=== PATIENT | female | born 1960 | race Caucasian/White ===

== ENCOUNTER → 2023-08-20 16:37 | Outpatient (REF) | payer OTHER, SELFPAY | LOC: WDC 16:37 | PROVIDERS: ATTENDING PHYSICIAN Obstetrics & Gynecology; FAMILY PHYSICIAN Family Medicine | DX: Z12.31 Encounter for screening mammogram for malignant neoplasm of breast (principal) | CPT/HCPCS: 77063; 77067 ==

== ENCOUNTER → 2023-08-21 12:46 | Outpatient (REF) | payer OTHER, SELFPAY | LOC: RAD 12:46 | PROVIDERS: ATTENDING PHYSICIAN Internal Medicine Cardiovascular Disease; FAMILY PHYSICIAN Family Medicine | DX: I70.0 Atherosclerosis of aorta (principal); T14.8XXA Other injury of unspecified body region, initial encounter | CPT/HCPCS: 71275; Q9967 ==

== ENCOUNTER → 2023-08-28 07:13 | Outpatient (REF) | payer OTHER, SELFPAY | LOC: DHCBS HW 07:13 | PROVIDERS: ATTENDING PHYSICIAN Internal Medicine Cardiovascular Disease; FAMILY PHYSICIAN Family Medicine | DX: I70.0 Atherosclerosis of aorta (principal); T14.8XXA Other injury of unspecified body region, initial encounter | CPT/HCPCS: 93306 ==

== ENCOUNTER 2024-02-09 15:48 | Emergency (ER) | payer OTHER, SELFPAY ==
[2024-02-09 15:58] VITALS: BP 163/94
[2024-02-09 16:21] LABS: % Basophils 0.7 % (0-2); % Eosinophils 1.2 % (0-6); % Immature Granulocytes 0.3 % (0-0.5); % Lymphocytes 23.7 % (20.5-51.1); % Monocytes 10.3 % (1.7-9.3); % Neutrophils 63.8 % (42.2-75.2); Absolute Basophils 0.1 10^3/uL (0-0.2); Absolute Eosinophils 0.1 10^3/uL (0-0.7); Absolute Lymphocytes 2.2 10^3/uL (1.2-3.4); Hematocrit 39.2 % (37.0-47.0); Mean Corp Hgb Conc. 35.7 g/dL (33.0-37.0); Mean Corpuscular Hgb 31.1 pg (27.0-31.0); Mean Corpuscular Volume 87.1 fL (81.0-99.0); Mean Platelet Volume 9.2 fL (7.4-10.4); Nucleated Red Blood Cells % 0 %; Platelet Count 412 10^3/uL (130-400); Red Cell Dist. Width 12.4 % (11.5-14.5); White Blood Cell Count 9.4 10^3/uL (4.8-10.8)
[2024-02-09 16:37] LABS: ALT (SGPT) 16 U/L (0-35); AST (SGOT) 18 U/L (14-36); Albumin 4.8 g/dl (3.5-5.0); Alkaline Phosphatase 62 U/L (38-126); Blood Urea Nitrogen 15 mg/dl (7-17); Calcium 9.7 mg/dl (8.4-10.2); Carbon Dioxide 28 mmol/L (22-30); Chloride 101 mmol/L (98-107); Glucose 93 mg/dl (70-99); Sodium 138 mmol/L (135-145); Total Bilirubin 0.8 mg/dl (0.2-1.3); Total Protein 7.6 g/dl (6.3-8.2); eGFR > 60.00
[2024-02-09 16:56] LABS: Troponin I < 0.012 ng/ml
[2024-02-09 17:34] VITALS: BP 164/76
--- NOTE | 2024-02-09 18:22 | ED.GENMED ---
History of Present Illness
General
Chief Complaint: Chest Pain
Source: patient
Exam Limitations: none
Time Seen by Provider: 02/09/24 18:21
Nursing documentation reviewed up to this point in time: agreed with
History of Present Illness
History of Present Illness:
Patient is a 64-year-old female who presents to the ER with intermittent left upper chest tightness for the past several days. She reports she feels a tightness in her left upper chest off and on for which lasts around seconds at a time. It is not
associated with shortness of breath. She denies any nausea vomiting diaphoresis. Last night while sleeping she also had a pinching type sensation in her left arm and she reports that she had to sleep with her left arm elevated and she had to
lay on her right side for the pain to go away. She does have a nxiety and was also concerned this could be anxiety.
She presently is asymptomatic. She does follow with DR Sharif .
She does not smoke. 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 She is not on blood thinners.
Past History
Past History
ED Past Medical History: GERD and Other (Anxiety)
ED Past Surgical History: Gynecological
Social History
Tobacco: Non-smoker
Alcohol: Occasional
Drug: None
Personal:
Living: with family
Employment: Employed
Family History
Family History: Hypertension
Review of Systems
Review of Systems
Allergies reviewed?: Yes
All Other Systems: ROS reviewed and negative except as documented in HPI and ROS
Constitutional: Reports no symptoms
Respiratory: Reports no symptoms; Denies trouble breathing
Cardiac: Reports chest pain (Currently chest pain-free); Denies palpitations or syncope
ABD/GI: Reports no symptoms; Denies abdominal pain, nausea or vomiting
: Reports no symptoms
Musculoskeletal: Reports other (Pinching sensation to left arm resolved now )
Skin: Reports no symptoms
Neurological: Reports no symptoms
Psychiatric: Reports no symptoms
Phy Exam
General Physical Exam
General Presentation: no apparent distress
General age: appears stated age
General Skin: warm and dry
General Habitus: normal
General Mental: alert
General Hydration: appears well hydrated
Cardiovascular Exam
Cardiovascular Exam: regular rate/rhythm, no murmur and normal peripheral pulses
Pulmonary Exam
Pulmonary Exam: lungs clear and no respiratory distress
Neurological Exam
Neurological Exam: alert and oriented x3
Musculoskeletal Exam
Musculoskeletal Exam: full ROM
Skin Exam
Skin Exam: normal color and warm/dry
Psychiatric Exam
Psychiatric Exam: normal mood/affect
Scores
Heart Score for Chest Pain Patients
STEMI patient?: Not applicable
Course
Orders/Labs/Results
Orders:
Orders
02/09/24 16:04
EKG [Electrocardiogram (*1)] Urgent
Reason for Study: Chest Pain
EKG- Treatment ONCE
02/09/24 16:14
CMP [Comprehensive Metabolic Panel] Urgent
Complete Blood Count/With Diff Urgent
Troponin I Urgent
02/09/24 17:32
CR Chest - 2 Views Urgent
Comment:
Reason For Exam: chest pain
Abnormal Lab Results
02/09/24
16:14
MCH 31.1 H pg
(27.0-31.0)
Plt Count 412 H 10^3/uL
(130-400)
Absolute Monos (auto) 1.0 H 10^3/uL
(0.1-0.6)
Monocytes % 10.3 H %
(1.7-9.3)
02/09/24 16:14
02/09/24 16:14
Vital Signs
Initial and Last Documented VS:
Initial Vital Signs
Temp Pulse Resp BP Pulse Ox
98.9 F 67 18 163/94 99
02/09/24 15:58 02/09/24 15:58 02/09/24 15:58 02/09/24 15:58 02/09/24 15:58
Last Documented Vital Signs
Temp Pulse Resp BP Pulse Ox
98.9 F 64 18 164/76 99
02/09/24 15:58 02/09/24 17:34 02/09/24 17:34 02/09/24 17:34 02/09/24 17:34
MDM/Problems Addressed
MDM/Problems Addressed:
Patient is a 64-year-old female who presented the ER with left upper chest tightness intermittent for the past several days which last seconds at a time not associated with shortness of breath. Last night she noticed some left arm pinching
sensation which was relieved with sleeping on the opposite side and elevating her left arm. Because of the arm pain and intermittent history of chest pain she presented to the ER. She presents awake alert no acute distress asymptomatic now
negative cardiac troponin no acute findings and EKG.
No acute findings on chest x-ray. With symptoms and negative cardiac troponin and patient being asymptomatic here in the ER safe to discharge home with chest pain hotline follow-up.
*Radiology
Radiology exam reviewed: preliminary read by ED provider
*Pulse Oximetry
Patient hypoxic: no
*EKG
Interpreted by ED Provider?: Yes
Interpretation: abnormal
Comparison EKG: no changes
Heart Rate: 63
Rate: normal
Rhythm: sinus
Ischemia: no ischemia
*Critical Care Note
Total Time (30-74mins, 75-104mins- exclusive of procedures): Not Applicable
ED Attending Note
-
Portions of this chart may have been created with voice recognition software.� Occasional wrong word or��sound alike� substitutions may have occurred due to the inherent limitations of voice recognition software.
Discharge Plan
Departure
Patient Disposition: Home (Routine Discharge)
Date of Disposition: 02/09/24
Time of Disposition: 18:30
Patient with high blood pressure during this ER visit?: Yes
Condition: Fair
Covid-19: Not Applicable
Discharge Problem:
Chest pain
Instructions: Chest Pain DCA Follow Up
Prescriptions:
No Action
omeprazole 40 MG capsule,delayed release(DR/EC)
40 mg PO DAILY
qksdaeipr-ilskrx-cvkkpbjd-scop 10 ML elixir
10 ml PO QIDPRN PRN (Reason: spasm) Qty: 10 0RF
alum-mag hydroxide-simeth [Mag-Al Plus] 30 ML suspension
30 ml PO QIDPRN PRN (Reason: indigestion) Qty: 14 0RF
hydrocodone-acetaminophen 1 TABLET tablet
1 tab PO Q4HPRN PRN (Reason: pain) Qty: 14 0RF
pantoprazole [Protonix] 40 mg tablet,delayed release (DR/EC)
40 mg PO DAILY Qty: 30 2RF
sucralfate [Carafate] 100 mg/mL suspension
1 g PO BID Qty: 1000 0RF
Referrals:
Aurelia Sharif MD [Active] -
Activity Restrictions/Additional Instructions:
As discussed you were placed on the cardiac chest pain hotline if you do not hear from their office please give them a call to schedule an appointment as soon as possible for reevaluation. Return if any worsening of symptoms.
Interventions
Interventions:
*Risk Screen - Suicide Last Done: 02/09/24 15:58
*Neglect/Abuse Screening Last Done: 02/09/24 15:58
*ED COVID-19 Vaccine History Last Done: 02/09/24 16:03
Discharge Date and Time
Print Language: BRITISH
== END 2024-02-09 18:38 | disposition home or self-care (01) ==
LOC: EMR 15:48
PROVIDERS: EMERGENCY PHYSICIAN Emergency Medicine; FAMILY PHYSICIAN Family Medicine
DX: R07.89 Other chest pain (principal); K21.9 Gastro-esophageal reflux disease without esophagitis; F41.9 Anxiety disorder, unspecified; Z82.49 Family history of ischemic heart disease and other diseases of the circulatory system
CPT/HCPCS: 99283; 71046; 80053; 84484; 85025; 93005

== ENCOUNTER → 2024-08-26 11:18 | Outpatient (REF) | payer OTHER, SELFPAY | LOC: WDC 11:18 | PROVIDERS: ATTENDING PHYSICIAN Obstetrics & Gynecology Gynecology; FAMILY PHYSICIAN Family Medicine | DX: Z12.31 Encounter for screening mammogram for malignant neoplasm of breast (principal) | CPT/HCPCS: 77063; 77067 ==

== ENCOUNTER → 2024-10-22 08:53 | Outpatient (REF) | payer OTHER, SELFPAY | LOC: RAD 08:53 | PROVIDERS: ATTENDING PHYSICIAN Surgery Vascular Surgery; FAMILY PHYSICIAN Family Medicine | DX: I70.0 Atherosclerosis of aorta (principal) | CPT/HCPCS: 71275; Q9967 ==

== ENCOUNTER → 2024-11-04 15:03 | Outpatient (REF) | payer OTHER, SELFPAY | LOC: RAD 15:03 | PROVIDERS: ATTENDING PHYSICIAN Family Medicine | DX: E04.1 Nontoxic single thyroid nodule (principal) | CPT/HCPCS: 76536 ==

== ENCOUNTER → 2024-12-08 09:21 | Outpatient (REF) | payer OTHER, SELFPAY ==
[2024-12-08 09:43] VITALS: BP 144/77; BP_SYST 73
== END ==
LOC: RADI 09:21
PROVIDERS: ATTENDING PHYSICIAN Family Medicine
DX: E04.1 Nontoxic single thyroid nodule (principal)
CPT/HCPCS: 88173; 10005